=== PATIENT | male | born 1970 | race Caucasian/White ===

== ENCOUNTER 2018-11-16 09:46 | Emergency (ER) | payer BC ==
[~2018-11-16] VITALS: Ht 185.4 cm; Wt 81.6 kg
== END 2018-11-16 16:02 | disposition home or self-care (01) ==
LOC: ER 09:46
DX: S43.084A Other dislocation of right shoulder joint, initial encounter (principal); W01.198A Fall on same level from slipping, tripping and stumbling with subsequent striking against other object, initial encounter; Y93.89 Activity, other specified; Y92.89 Other specified places as the place of occurrence of the external cause; Y99.8 Other external cause status